=== PATIENT | female | born 1985 | race Caucasian/White ===

== ENCOUNTER 2018-02-01 09:31 | Day surgery (SDC) | payer BC ==
[~2018-02-01 09:31] MED LIST: PROPOFOL INJ 200 MG/20 ML VIAL IV ONE
[2018-02-01 12:19] VITALS: BP 117/71
--- NOTE | 2018-02-01 12:21 | Operative Report ---
Operative Report DATE OF SURGERY: 02/01/18 Operative Report: The risks, benefits and alternatives of the procedure including risks of bleeding, perforation requiring surgery are explained to the patient in detail and informed consent is obtained. Patient is brought back to the endoscopy suite and placed in a left, lateral decubital position. Timeout was called. Propofol medications administered. A rectal examination is done which did not reveal any masses, tears or fissures. An Olympus videoscope was inserted into the patient's rectum. The scope was then carefully advanced all the way to the cecum. The cecum was identified by the usual anatomical landmarks including the ileocecal valve as well as the appendiceal office. Photodocumentation is obtained. Prep is not as good. Scope was then sequentially pulled back via the various segments of the colon including the ascending colon, hepatic flexure , transverse colon, splenic flexure, descending colon and finally into the rectosigmoid portions of the colon. Retroflexion maneuvers performed. PREOPERATIVE DIAGNOSIS: Change in bowel habits POSTOPERATIVE DIAGNOSIS: Mild right side colon inflammation status post biopsy. Patient likely has a motility disorder OPERATION: Colonoscopy with biopsy SURGEON: ADELAIDA MUÑOZ ANESTHESIA: LMAC TISSUE REMOVED OR ALTERED: As noted above. COMPLICATIONS: None. ESTIMATED BLOOD LOSS: None. INTRAOPERATIVE FINDINGS: As noted above. PROCEDURE: Patient tolerated procedure well. No immediate postprocedure complications are noted. Patient discharged in good condition. Discharge date 02/01/2018. Discharge diet: Regular. Discharge activity: Regular. 2-3 week follow-up to discuss findings. Patient is instructed to call the office or proceed to the emergency room should there be any further problems or questions. We will wait on pathology.
== END 2018-02-01 11:40 | disposition home or self-care (01) ==
LOC: END 09:31
PROVIDERS: ATTEND Internal Medicine Gastroenterology
DX: K52.9 Noninfective gastroenteritis and colitis, unspecified (principal); K62.89 Other specified diseases of anus and rectum; F17.210 Nicotine dependence, cigarettes, uncomplicated; I10 Essential (primary) hypertension; Z79.899 Other long term (current) drug therapy; Z79.891 Long term (current) use of opiate analgesic; Z88.5 Allergy status to narcotic agent; Z88.8 Allergy status to other drugs, medicaments and biological substances; Z88.2 Allergy status to sulfonamides
CPT/HCPCS: 45380; 88305 ×2; J2704; 811

== ENCOUNTER 2020-08-06 14:07 | Emergency (ER) | payer BC ==
[2020-08-06] MEDS ORDERED: ACETAMINOPHEN 325 MG TABLET PO ONE (15:03)
--- NOTE | 2020-08-06 15:05 | ER Document Report ---
ED Medical Screen (RME) - General Chief Complaint: Abdominal Pain Stated Complaint: ABDOMINAL PAIN Time Seen by Provider: 08/06/20 15:00 Mode of Arrival: Wheelchair Information source: Patient Notes: 35-year-old female presents to ED with light right lower quadrant/pelvic pain that started last night. She states last menstrual period was July 17 with beginning of July. She states she does have celiac's and diverticulitis but this is neither of those. She states she has not had any fevers she has had nausea and she had liquid stool last night. TRAVEL OUTSIDE OF THE [place] IN LAST 30 DAYS: No - Related Data Allergies/Adverse Reactions: gluten Allergy (Severe, Verified 02/01/18 10:09) swelling, bloating morphine [Morphine] Allergy (Severe, Verified 02/01/18 10:09) Anaphylaxis prednisone Allergy (Intermediate, Verified 02/01/18 10:09) AMS, swelling Sulfa (Sulfonamide Antibiotics) Adverse Reaction (Intermediate, Verified 02/01/18 10:09) itchy, rash Past Medical History - Past Medical History Cardiac Medical History: Denies: Hx Coronary Artery Disease, Hx Heart Attack, Hx Hypertension Pulmonary Medical History: Reports: Hx Pneumonia Denies: Hx Asthma, Hx Bronchitis, Hx COPD Neurological Medical History: Reports: Hx Migraine. Denies: Hx Cerebrovascular Accident, Hx Seizures Musculoskeltal Medical History: Denies Hx Arthritis Psychiatric Medical History: Reports: Hx Anxiety, Hx Depression Past Surgical History: Reports: Hx Orthopedic Surgery - left foot - Immunizations Hx Diphtheria, Pertussis, Tetanus Vaccination: Yes Physical Exam - Vital signs Vitals: Temp Pulse Resp BP Pulse Ox 98.0 F 93 18 135/89 H 97 08/06/20 14:30 08/06/20 14:30 08/06/20 14:30 08/06/20 14:30 08/06/20 14:30 Course - Vital Signs Vital signs: Temp Pulse Resp BP Pulse Ox 98.0 F 93 18 135/89 H 97 08/06/20 14:30 08/06/20 14:30 08/06/20 14:30 08/06/20 14:30 08/06/20 14:30
[2020-08-06 15:43] LABS: ABSOLUTE EOSINOPHILS # (AUTO) 0.1 10^3/uL (0.0-0.6); ABSOLUTE LYMPHOCYTES (AUTO) 2.1 10^3/uL (0.5-4.7); ABSOLUTE MONOCYTES (AUTO) 0.5 10^3/uL (0.1-1.4); ABSOLUTE NEUT (AUTO) 4.7 10^3/uL (1.7-8.2); BASOPHILS % (AUTO) 0.4 % (0-2); EOSINOPHILS % (AUTO) 1.6 % (0-6); HEMATOCRIT 40.2 % (36.0-47.0); LYMPHOCYTES % (AUTO) 28.1 % (13-45); MEAN CORPUSCULAR HEMOGLOBIN 32.1 pg (27.0-33.4); MEAN CORPUSCULAR VOLUME 92 fl (80-97); MONOCYTES % (AUTO) 6.6 % (3-13); PLATELET COUNT 321 10^3/uL (150-450); RED BLOOD COUNT 4.38 10^6/uL (3.72-5.28); RED CELL DISTRIBUTION WIDTH 12.4 % (11.5-14.0); SEGMENTED NEUTROPHILS % (AUTO) 63.3 % (42-78); TOTAL CELLS COUNTED % (AUTO) 100 %; WHITE BLOOD COUNT 7.4 10^3/uL (4.0-10.5)
[2020-08-06 15:45] LABS: APPEARANCE,URINE CLEAR; BILIRUBIN,URINE NEGATIVE (NEGATIVE); COLOR,URINE STRAW; GLUCOSE, URINE NEGATIVE (NEGATIVE); KETONES,URINE NEGATIVE (NEGATIVE); LEUKOCYTE ESTERASE,URINE NEGATIVE (NEGATIVE); NITRITE,URINE NEGATIVE (NEGATIVE); PROTEIN,URINE NEGATIVE (NEGATIVE); URINE SPECIFIC GRAVITY 1.008; UROBILINOGEN,URINE NEGATIVE mg/dL (<2.0)
[2020-08-06 16:03] LABS: ALBUMIN 5.1 g/dL (3.5-5.0); ALKALINE PHOSPHATASE 51 U/L (38-126); ANION GAP 11 (5-19); ASPARTATE AMINO TRANSFERASE 22 U/L (14-36); BILIRUBIN,DIRECT 0.1 mg/dL (0.0-0.4); BILIRUBIN,TOTAL 0.3 mg/dL (0.2-1.3); BLOOD UREA NITROGEN 9 mg/dL (7-20); CALCIUM 10.3 mg/dL (8.4-10.2); CARBON DIOXIDE 22 mmol/L (22-30); CHLORIDE 109 mmol/L (98-107); GLUCOSE 93 mg/dL (75-110); TOTAL PROTEIN 8.1 g/dL (6.3-8.2)
--- NOTE | 2020-08-06 16:35 | RADIOLOGY REPORT (SQ) ---
EXAM DESCRIPTION: U/S NON OB PEL TV W/DOPPLER IMAGES COMPLETED DATE/TIME: 08/06/2020 4:19 pm REASON FOR STUDY: Right pelvic/lower abdominal pain COMPARISON: None. TECHNIQUE: Dynamic and static grayscale images acquired of the pelvis via transvaginal approach and recorded on PACS. Additional selected color Doppler and spectral images recorded. LIMITATIONS: None. FINDINGS: UTERUS: The uterus measures 6.9 x 3.6 x 3.1 cm. The echotexture of the myometrium is homo geneous. ENDOMETRIAL STRIPE: The endometrium measures 7.5 mm in thickness. CERVIX: The cervix measures 1.8 cm in length. RIGHT OVARY AND DOPPLER: The right ovary measures 3.1 x 3 x 2.6 cm and on Doppler there is intact art erial inflow and venous outflow within the ovarian stroma. There is no adnexal mass. LEFT OVARY AND DOPPLER: The left ovary measures 2.7 x 3 x 1.7 cm and on Doppler there is intact arter ial inflow and venous outflow within the ovarian stroma. There is no adnexal mass. FREE FLUID: None noted. OTHER: No other findings. IMPRESSION: NORMAL TRANSVAGINAL PELVIC ULTRASOUND. TECHNICAL DOCUMENTATION: JOB ID: [id number] 2010 [employer]- All Rights Reserved Rev Reading location - IP/workstation name: [email or web address]
[2020-08-06 19:16] VITALS: BP 132/66
--- NOTE | 2020-08-06 19:41 | ER Document Report ---
ED GI/ - General Chief Complaint: Abdominal Pain Stated Complaint: ABDOMINAL PAIN Time Seen by Provider: 08/06/20 15:00 Primary Care Provider: ELIO ARAIZA MD [Primary Care Provider] - Follow up as needed Mode of Arrival: Wheelchair Information source: Patient Notes: 08/06/20 15:01 - Nursing Note by MONALISA ESCALONA Num: [id number] : 1985 Patient Age: 35 Pt arrives with a steady gait to triage. Pt states that she is having right sided abd pain that started last night. Pt states that she has a hx of diverticulitis. Pt states that she last had a bm this morning and it was diarrhea. Pt reports n/v, denies fever. Pt is a&ox4 with e/u respirations. Initialized on 08/06/20 15:01 - END OF NOTE CARLOS CALL PERSON NOTES - General Chief Complaint: Abdominal Pain Stated Complaint: ABDOMINAL PAIN Time Seen by Provider: 08/06/20 15:00 Mode of Arrival: Wheelchair Information source: Patient Notes: 35-year-old female presents to ED with light right lower quadrant/pelvic pain that started last night. She states last menstrual period was July 17 with beginning of July. She states she does have celiac's and diverticulitis but this is neither of those. She states she has not had any fevers she has had nausea and she had liquid stool last night. TRAVEL OUTSIDE OF THE [place] IN LAST 30 DAYS: No - Related Data Allergies/Adverse Reactions: gluten Allergy (Severe, Verified 02/01/18 10:09) swelling, bloating morphine [Morphine] Allergy (Severe, Verified 02/01/18 10:09) Anaphylaxis prednisone Allergy (Intermediate, Verified 02/01/18 10:09) AMS, swelling Sulfa (Sulfonamide Antibiotics) Adverse Reaction (Intermediate, Verified 02/01/18 10:09) itchy, rash Past Medical History - Past Medical History Cardiac Medical History: Denies: Hx Coronary Artery Disease, Hx Heart Attack, Hx Hypertension Pulmonary Medical History: Reports: Hx Pneumonia Denies: Hx Asthma, Hx Bronchitis, Hx COPD Neurological Medical History: Reports: Hx Migraine. Denies: Hx Cerebrovascular Accident, Hx Seizures Musculoskeltal Medical History: Denies Hx Arthritis Psychiatric Medical History: Reports: Hx Anxiety, Hx Depression Past Surgical History: Reports: Hx Orthopedic Surgery - left foot - Immunizations Hx Diphtheria, Pertussis, Tetanus Vaccination: Yes Physical Exam MY NOTES 35-year-old female with history of diverticulitis and celiac disease and has been followed by Dr. León in 2016 and 2018 arrives today with symptoms of having right lower abdominal pain with associated diarrhea. Patient reports she has not seen Dr. Reis in at least 2 years. Patient's labs and ultrasound ordered by Bettina SERRANO at triage and these were within normal limits. Patient reports she is been having problems with her menstrual flow since late June. Her test was negative today. KUB reveals dilated loops right lower quadrant and therefore CT of abdomen was written. Patient denies any vaginal discharge STDs fever chills cough or cold symptoms trauma abuse. TRAVEL OUTSIDE OF THE [place] IN LAST 30 DAYS: No - HPI Patient complains to provider of: Abdominal pain Onset: Other - Last night Timing/Duration: Persistent - 9 out of 10 pain Quality of pain: Achy Severity at maximum: Severe Severity in ED: Severe Pain Level: 5 Location: RLQ - Related Data Allergies/Adverse Reactions: gluten Allergy (Severe, Verified 02/01/18 10:09) swelling, bloating morphine [Morphine] Allergy (Severe, Verified 02/01/18 10:09) Anaphylaxis prednisone Allergy (Intermediate, Verified 02/01/18 10:09) AMS, swelling Sulfa (Sulfonamide Antibiotics) Adverse Reaction (Intermediate, Verified 02/01/18 10:09) itchy, rash Past Medical History - General Information source: Patient - Social History Smoking Status: Never Smoker Cigarette use (# per day): No Chew tobacco use (# tins/day): No Smoking Education Provided: No Frequency of alcohol use: None Lives with: Family Family History: Reviewed & Not Pertinent Patient has suicidal ideation: No Patient has homicidal ideation: No - Past Medical History Cardiac Medical History: Denies: Hx Coronary Artery Disease, Hx Heart Attack, Hx Hypertension Pulmonary Medical History: Reports: Hx Pneumonia Denies: Hx Asthma, Hx Bronchitis, Hx COPD Neurological Medical History: Reports: Hx Migraine. Denies: Hx Cerebrovascular Accident, Hx Seizures Musculoskeletal Medical History: Denies Hx Arthritis Psychiatric Medical History: Reports: Hx Anxiety, Hx Depression Past Surgical History: Reports: Hx Orthopedic Surgery - left foot - Immunizations Hx Diphtheria, Pertussis, Tetanus Vaccination: Yes Review of Systems - Review of Systems Constitutional: See HPI, Recent illness EENT: No symptoms reported Cardiovascular: No symptoms reported Respiratory: No symptoms reported Gastrointestinal: See HPI, Abdominal pain, Nausea - After eating half a sandwich at lunchtime last known meal Genitourinary: No symptoms reported Female Genitourinary: No symptoms reported Musculoskeletal: No symptoms reported Skin: No symptoms reported Hematologic/Lymphatic: No symptoms reported Neurological/Psychological: No symptoms reported -: Yes All other systems reviewed and negative Physical Exam - Vital signs Vitals: Temp Pulse Resp BP Pulse Ox 98.0 F 93 18 135/89 H 97 08/06/20 14:30 08/06/20 14:30 08/06/20 14:30 08/06/20 14:30 08/06/20 14:30 Interpretation: Normal - General General appearance: Appears well, Alert - HEENT Head: Normocephalic, Atraumatic Eyes: Normal Pupils: PERRL - Respiratory Respiratory status: No respiratory distress Chest status: Nontender Breath sounds: Normal Chest palpation: Normal - Cardiovascular Rhythm: Regular Heart sounds: Normal auscultation Murmur: No - Abdominal Inspection: Normal Distension: No distension Bowel sounds: Normal Tenderness: Nontender Organomegaly: No organomegaly - Back Back: Normal, Nontender - Extremities General upper extremity: Normal inspection, Nontender, Normal color, Normal ROM, Normal temperature General lower extremity: Normal inspection, Nontender, Normal color, Normal ROM, Normal temperature, Normal weight bearing. No: Errol's sign - Neurological Neuro grossly intact: Yes Cognition: Normal Orientation: AAOx4 [place] Coma Scale Eye Opening: Spontaneous Gladys Coma Scale Verbal: Oriented [place] Coma Scale Motor: Obeys Commands [place] Coma Scale Total: 15 Speech: Normal Motor strength normal: LUE, RUE, LLE, RLE Sensory: Normal - Psychological Associated symptoms: Normal affect, Normal mood - Skin Skin Temperature: Warm Skin Moisture: Dry Skin Color: Normal Course - Vital Signs Vital signs: Temp Pulse Resp BP Pulse Ox 98.8 F 88 16 132/66 H 100 08/06/20 19:16 08/06/20 19:16 08/06/20 19:16 08/06/20 19:16 08/06/20 19:16 - Laboratory Result Diagrams: 08/06/20 15:17 08/06/20 15:17 Laboratory results interpreted by me: 08/06/20 08/06/20 15:17 15:17 Chloride 109 H Calcium 10.3 H Albumin 5.1 H Urine Ascorbic Acid 20 H - Diagnostic Test Radiology reviewed: Reports reviewed - KUB with loops of bowel right lower quadrant and CT abdomen pelvis with NAD per radiologist. Critical Care Note - Critical Care Note Comments: I discussed the lab findings and x-ray findings and CT findings with the patient. She appeared to understand my explanation of the findings. I advised her to follow-up with Dr. Reis piano technician Discharge - Discharge Clinical Impression: Abdominal pain Qualifiers: Abdominal location: right lower quadrant Qualified Code(s): R10.31 - Right lower quadrant pain Condition: Stable Disposition: HOME, SELF-CARE Instructions: Abdominal Pain ([facility]) Additional Instructions: Follow-up with Dr. Reis piano technician. Call his office for appointment. Take medicines as directed. Encourage fluids. May take antibiotics twice daily for 5 days. Try to stick to a brat diet that is bananas rice applesauce toast trinh duke until seen by piano technician. Prescriptions: Dicyclomine HCl [Bentyl 20 mg Tablet] 20 mg PO BID #14 tablet Ciprofloxacin HCl [Cipro 500 mg Tablet] 500 mg PO BID #10 tablet Metronidazole [Flagyl 500 mg Tablet] 500 mg PO BID #10 tablet Referrals: ELIO ARAIZA MD [Primary Care Provider] - Follow up as needed
--- NOTE | 2020-08-06 20:34 | RADIOLOGY REPORT (SQ) ---
EXAM DESCRIPTION: XR ABDOMEN 1 VIEW (KUB) COMPLETED DATE/TME: 08/06/2020 20:09 CLINICAL HISTORY: 35 years, Female, pain COMPARISON: None. TECHNIQUE: Supine KUB FINDINGS: Minimal prominence of small bowel loops in the right abdomen. Colonic loops are unremarkable. No suspicious soft tissue specific abnormality IMPRESSION: Nonspecific bowel pattern without definite significant abnormality.
[2020-08-06] MEDS ORDERED: NORMAL SALINE 1000 ML 1,000 ML IV ONE (21:27)
[2020-08-06] MEDS ORDERED: HYDROMORPHONE HCL INJ/PF 2 MG/ML AMPULE IV ONE (21:28)
[2020-08-06] MEDS ORDERED: ONDANSETRON HCL INJ/PF 4 MG/2 ML SDV IV ONE (21:28)
--- NOTE | 2020-08-06 22:50 | RADIOLOGY REPORT (SQ) ---
CT abdomen and pelvis with contrast on 08/06/2020 at 9:59 PM CLINICAL INDICATION: Right lower quadrant pain TECHNIQUE: Multiple axial images are obtained throughout the abdomen and pelvis following the administration of IV contrast, 87 mL of Omnipaque 350contrast was administered intravenously without complication. This exam was performed according to our departmental dose-optimization program, which includes automated exposure control, adjustment of the mA and/or kV according to patient size and/or use of iterative reconstruction technique. Total DLP is 557.4 mGy*cm. COMPARISON: None FINDINGS: Abdomen: The lung bases are clear. There is an area of increased density on the early phase postcontrast imaging in the right posterior liver that likely either represents capillary hemangioma or an area of transient hepatic attenuation difference. Solid abdominal organs are otherwise unremarkable. There is no abdominal adenopathy. There is no free fluid or free air within the abdomen. The abdominal portion of the GI tract is unremarkable. Pelvis: Trace free fluid in the pelvis is likely physiologic. Pelvic organs appear unremarkable by CT. There is no pelvic adenopathy. Pelvic portion of the GI tract including the appendix is unremarkable. No acute bony abnormality is noted. IMPRESSION: No acute abnormality.
== END 2020-08-06 23:50 | disposition home or self-care (01) ==
LOC: ER 14:07
DX: R10.31 Right lower quadrant pain (principal); R19.7 Diarrhea, unspecified; R10.2 Pelvic and perineal pain; R11.0 Nausea; Z88.8 Allergy status to other drugs, medicaments and biological substances; Z88.2 Allergy status to sulfonamides
CPT/HCPCS: 99285; 96361; 96374; 36415; 84703; 85025; 80053; 81001; 74018; 76830; 93976; 74177; J1170; J2405; J7030

== ENCOUNTER 2020-08-10 07:13 | Day surgery (SDC) | payer BC ==
[2020-08-10] MEDS ORDERED: LIDOCAINE 2% INJ-PF (20 MG/ML) 10 ML AMPUL ONE (07:18)
[2020-08-10 10:36] VITALS: BP 123/77
--- NOTE | 2020-08-10 11:20 | Operative Report ---
Operative Report DATE OF SURGERY: 08/10/20 Operative Report: The risk, benefits and alternatives of the procedure including the risk of bleeding, perforation requiring surgery have been explained to the patient in detail and informed consent has been obtained. Patient is placed in left, lateral decubital position. Timeout was called. Propofol medication is administered. Rectal examination is done which did not reveal any masses, tears or fissures. An Olympus videoscope was introduced into the patient's rectum. Scope was then carefully advanced all the way to the cecum. The cecum was identified by the usual anatomical landmarks including the ileocecal valve as well as the appendiceal office. Photodocumentation is obtained. Scope was then sequentially pulled back via the various segments of the colon including the ascending colon, hepatic flexure, transverse colon, splenic flexure, descending colon finding to the rectosigmoid portions of the colon. Retroflexion maneuvers performed. The risks benefits and alternatives of the procedure explained to the patient in detail and informed consent is obtained.A GIF Olympus video scope was inserted into the patient's mouth and hypopharynx, the esophagus is identified intubated and insufflated, the scope was then advanced through the esophagus stomach and duodenum, retroflexion maneuver is done, the esophagus stomach and first and second portions of the duodenum examined PREOPERATIVE DIAGNOSIS: Change in bowel habits, abdominal pain. Right lower quadrant pain. Possible melena POSTOPERATIVE DIAGNOSIS: Terminal ileum biopsy rule out Crohn's disease. Internal hemorrhoids. Gastritis status post biopsy OPERATION: Colonoscopy with biopsy. EGD with biopsy SURGEON: ADELAIDA MUÑOZ ANESTHESIA: LMAC TISSUE REMOVED OR ALTERED: As noted above. COMPLICATIONS: None. ESTIMATED BLOOD LOSS: None. INTRAOPERATIVE FINDINGS: As noted above. PROCEDURE: Patient tolerated the procedure well. No immediate postprocedure complications are noted. Patient is discharged in good condition. Discharge date 08/10/2020. Discharge diet: Regular. Discharge activity: Regular. 2 to 3-week follow-up to discuss findings. Patient is instructed to call the office or proceed to the emergency room should there be any further problems questions. Wait on the pathology.
== END 2020-08-10 10:34 | disposition home or self-care (01) ==
LOC: END 07:13
PROVIDERS: ATTEND Internal Medicine Gastroenterology
DX: K50.00 Crohn's disease of small intestine without complications (principal); K25.9 Gastric ulcer, unspecified as acute or chronic, without hemorrhage or perforation; K29.50 Unspecified chronic gastritis without bleeding; K64.8 Other hemorrhoids; K90.0 Celiac disease; F41.1 Generalized anxiety disorder; F17.200 Nicotine dependence, unspecified, uncomplicated; Z79.899 Other long term (current) drug therapy
CPT/HCPCS: 43239; 45380; 88305 ×2; J2704; J3490; 813; 88342